=== PATIENT | male | born 1985 | race Caucasian/White ===

== ENCOUNTER 2019-03-14 14:38 | Emergency (ER) | payer SELFPAY ==
[~2019-03-14] VITALS: Ht 170.1 cm; Wt 99.8 kg
[~2019-03-14 14:38] MED LIST: AMOXICILLIN500 M2 PO; AMOXICILLIN500 MG PO; CEPHALEXIN500 M1 PO; CORTISPORIN SUS10 ML OT; OMNICEF300 MG PO; ZYRTEC10 MG PO
[2019-03-14] MEDS ORDERED: CYCLOBENZAPRINE10 MG PO (14:53)
[2019-03-14] MEDS ORDERED: ANAPROX DS550 MG PO (14:53)
== END 2019-03-14 15:03 | disposition home or self-care (01) ==
LOC: ED 14:38
DX: S39.012A Strain of muscle, fascia and tendon of lower back, initial encounter (principal); F17.200 Nicotine dependence, unspecified, uncomplicated; X50.0XXA Overexertion from strenuous movement or load, initial encounter; Y93.89 Activity, other specified; Y92.89 Other specified places as the place of occurrence of the external cause; Y99.8 Other external cause status

== ENCOUNTER 2019-08-07 19:04 | Emergency (ER) | payer SELFPAY ==
[~2019-08-07] VITALS: Ht 167.6 cm; Wt 104.3 kg
[~2019-08-07 19:04] MED LIST changes: +ANAPROX DS550 MG PO; +CYCLOBENZAPRINE10 MG PO
[2019-08-07] MEDS ORDERED: CLINDAMYCIN HC300 MG PO (19:45)
== END 2019-08-07 19:58 | disposition home or self-care (01) ==
LOC: ED 19:04
DX: L03.116 Cellulitis of left lower limb (principal)

== ENCOUNTER 2020-10-18 17:51 | Emergency (ER) | payer OTHER ==
[~2020-10-18] VITALS: Ht 175.2 cm; Wt 104.3 kg
[~2020-10-18 17:51] MED LIST changes: +CLINDAMYCIN HC300 MG PO
[2020-10-18 18:35] LABS: BASO # 0.1 10*3/uL (0.0-0.1); BASO % 0.7 % (0.0-1.0); EOS # 0.2 10*3/uL (0.0-0.4); EOS % 2.2 % (1.0-4.0); HEMATOCRIT 43.2 % (42.0-52.0); LYMPH # 1.5 10*3/uL (1.3-4.4); LYMPH % 17.6 % (27.0-41.0); MEAN CELL VOLUME 85.5 fl (80.0-94.0); MEAN CORPUSCULAR HGB 29.5 pg (27.0-31.0); MEAN CORPUSCULAR HGB CONC 34.5 g/dl (33.0-37.0); MEAN PLATELET VOLUME 10.6 fl (9.6-12.3); MONO # 0.5 10*3/uL (0.1-1.0); MONO % 5.8 % (3.0-9.0); NEUT # 6.3 10*3/uL (2.3-7.9); NEUT % 73.4 % (47.0-73.0); PLATELET COUNT AUTOMATED 199 10*3/uL (130-400); RED BLOOD COUNT 5.05 10*6/uL (4.50-5.90); RED CELL DISTRI WIDTH 11.6 % (0-14.5); WHITE BLOOD COUNT 8.6 10*3/uL (4.8-10.8)
[2020-10-18 18:49] LABS: BILIRUBIN Negative (Negative); BLOOD 1+ (Negative); CLARITY Clear (Clear); COLOR Yellow (Yellow); GLUCOSE 3+ (Negative); KETONE Negative (Negative); LEUKO ESTERASE Negative (Negative); NITRITE Negative (Negative); PH 5.5 (4.5-8.0); SPECIFIC GRAVITY >= 1.030 (1.001-1.030); UROBILINOGEN 0.2 E.U./dl (0.0-1.0)
[2020-10-18 18:50] LABS: ALBUMIN 3.3 gm/dl (3.1-4.5); ALKALINE PHOSPHATASE 186 U/L (45-117); BUN 8 mg/dl (7-24); CHLORIDE 98 mmol/L (98-107); POTASSIUM 3.9 mmol/L (3.5-5.1); SGOT/AST 42 IU/L (3-35); SGPT/ALT 65 U/L (12-78); SODIUM 130 mmol/L (136-145); TOTAL PROTEIN 7.7 gm/dL (6.4-8.2)
[2020-10-18 18:59] LABS: EPITHELIAL CELLS 0-2; RBC 16-20 rbc/hpf (0-2); WBC 0-2 wbc/hpf (0-5)
[2020-10-18] MEDS ORDERED: GLUCOPHAGE500 M1 PO (19:03)
== END 2020-10-18 19:27 | disposition home or self-care (01) ==
LOC: ED 17:51
PROVIDERS: Nurse Practitioner Family
DX: R73.9 Hyperglycemia, unspecified (principal); I10 Essential (primary) hypertension; F17.200 Nicotine dependence, unspecified, uncomplicated; Z79.899 Other long term (current) drug therapy

== ENCOUNTER 2020-12-12 21:06 | Emergency (ER) | payer OTHER ==
[~2020-12-12] VITALS: Ht 172.7 cm; Wt 99.8 kg
[~2020-12-12 21:06] MED LIST changes: +GLUCOPHAGE500 M1 PO
== END 2020-12-12 23:04 | disposition home or self-care (01) ==
LOC: ED 21:06
DX: S20.20XA Contusion of thorax, unspecified, initial encounter (principal); R07.89 Other chest pain; I10 Essential (primary) hypertension; Z79.899 Other long term (current) drug therapy; Z79.84 Long term (current) use of oral hypoglycemic drugs; X58.XXXA Exposure to other specified factors, initial encounter; Y93.89 Activity, other specified; Y92.89 Other specified places as the place of occurrence of the external cause; Y99.8 Other external cause status

== ENCOUNTER 2021-03-09 16:00 | Emergency (ER) | payer OTHER ==
[~2021-03-09] VITALS: Ht 170.1 cm; Wt 93.9 kg
[2021-03-09] MEDS ORDERED: VISTARIL25 MG PO (17:27)
[2021-03-09] MEDS ORDERED: PREDNISONE50 MG PO (17:27)
== END 2021-03-09 17:33 | disposition home or self-care (01) ==
LOC: ED 16:00
DX: L25.9 Unspecified contact dermatitis, unspecified cause (principal); E11.9 Type 2 diabetes mellitus without complications; Z79.2 Long term (current) use of antibiotics; Z79.899 Other long term (current) drug therapy

== ENCOUNTER 2021-03-24 16:41 | Emergency (ER) | payer OTHER ==
[~2021-03-24] VITALS: Wt 90.7 kg
[~2021-03-24 16:41] MED LIST changes: +PREDNISONE50 MG PO; +VISTARIL25 MG PO
[2021-03-24] MEDS ORDERED: PREDNISONE20 M1 PO (18:12)
== END 2021-03-24 18:07 | disposition home or self-care (01) ==
LOC: ED 16:41
DX: L25.9 Unspecified contact dermatitis, unspecified cause (principal); F17.200 Nicotine dependence, unspecified, uncomplicated; Z79.899 Other long term (current) drug therapy